=== PATIENT | male | born 1995 | race Caucasian/White ===

== ENCOUNTER 2019-05-08 16:39 | Emergency (ER) | payer OTHER ==
[~2019-05-08] VITALS: Ht 185.4 cm; Wt 65.8 kg
[~2019-05-08 16:39] MED LIST: BACTRIM DS 8001 TA1 PO; CLINDAMYCIN HC300 MG PO; Ciprodex 0.3%-7.5 ML OT; KEFLEX500 MG PO; MOTRIN600 MG PO; OTIC CARE 1%-0.10 ML OT; VICODIN 5/500 505 MG PO
[2019-05-08 17:15] LABS: BASO % 0.2 % (0.0-1.0); EOS % 0.3 % (1.0-4.0); HEMATOCRIT 45.5 % (42.0-52.0); HEMOGLOBIN 15.1 g/dl (14.0-18.0); LYMPH # 3.1 10*3/uL (1.3-4.4); LYMPH % 24.1 % (27.0-41.0); MEAN CELL VOLUME 98.5 fl (80.0-94.0); MEAN CORPUSCULAR HGB 32.7 pg (27.0-31.0); MEAN CORPUSCULAR HGB CONC 33.2 g/dl (33.0-37.0); MEAN PLATELET VOLUME 10.4 fl (9.6-12.3); MONO # 1.2 10*3/uL (0.1-1.0); MONO % 9.2 % (3.0-9.0); NEUT # 8.5 10*3/uL (2.3-7.9); PLATELET COUNT AUTOMATED 228 10*3/uL (130-400); RED BLOOD COUNT 4.62 10*6/uL (4.50-5.90); RED CELL DISTRI WIDTH 12.1 % (0-14.5); WHITE BLOOD COUNT 12.8 10*3/uL (4.8-10.8)
[2019-05-08 17:43] LABS: ALBUMIN 3.8 gm/dl (3.1-4.5); ALKALINE PHOSPHATASE 54 U/L (45-117); BUN 9 mg/dl (7-24); CHLORIDE 104 mmol/L (98-107); CREATININE 0.98 mg/dL (0.70-1.30); POTASSIUM 3.6 mmol/L (3.5-5.1); SGOT/AST 11 IU/L (3-35); SGPT/ALT 16 U/L (12-78); SODIUM 138 mmol/L (136-145); TOTAL PROTEIN 8.1 gm/dL (6.4-8.2)
[2019-05-08] MEDS ORDERED: PREDNISONE20 M1 PO (18:35)
[2019-05-08] MEDS ORDERED: ZITHROMAX500 MG PO (18:35)
[2019-05-08] MEDS ORDERED: IBU800 MG PO (18:35)
== END 2019-05-08 18:57 | disposition home or self-care (01) ==
LOC: ED 16:39
PROVIDERS: Nurse Practitioner Family
DX: J20.9 Acute bronchitis, unspecified (principal); R09.1 Pleurisy; Z79.2 Long term (current) use of antibiotics